=== PATIENT | female | born 1960 | race Caucasian/White ===

== ENCOUNTER 2022-04-12 05:30 | Inpatient (IN) | payer OTHER, SELFPAY ==
[2022-04-12] VITALS (27 sets, daily range): BP systolic 88–129; BP diastolic 47–89; PULSE 87–115; RESP 15–26; TEMP 37.1–37.6; O2SAT 91–99; BMI 48.4
--- NOTE | ~2022-04-12 | XR_ITS ---
EXAMINATION: XR tibia fibula LT 2V INDICATION: Left leg pain TECHNIQUE: Two views of the left leg are obtained. COMPARISON: None available FINDINGS: Bone alignment is normal. There is no fracture. There is mild osteoarthritis of the knee an d ankle. The soft tissues are unremarkable. IMPRESSION: 1. No acute osseous abnormality. Reviewed, dictated and finalized at location A.
--- NOTE | ~2022-04-12 | XR_ITS ---
EXAMINATION: XR hip LT 2V w AP pelvis INDICATION: Left hip pain after fall TECHNIQUE: AP pelvis and two views of the left hip are obtained COMPARISON: None available FINDINGS: There is advanced osteoarthritis of the left hip with remodeling of the femoral head and ac etabulum. No fracture is identified. There is mild osteoarthritis of the right hip. The soft tissues are unremarkable. IMPRESSION: 1. Advanced osteoarthritis of the left hip without acute osseous abnormality. Reviewed, dictated and finalized at location A.
--- NOTE | ~2022-04-12 | CT_ITS ---
EXAMINATION: CT abdomen pelvis w con INDICATION: Sepsis TECHNIQUE: Computed tomographic images of the abdomen and pelvis were obtained after the administrati on of 100 cc of Omnipaque 300 intravenous contrast. The dose-length product (DLP) was 1631.07 mGy-cm. Automated exposure control and iterative reconstruction technique were employed. COMPARISON: None available FINDINGS: Minimal dependent atelectasis is present in the lung bases. The heart size is normal. The g allbladder is surgically absent. The liver, spleen, pancreas, and adrenal glands are normal. There is moderate right hydronephrosis with an abrupt transition at the ureteropelvic junction. There is urot helial enhancement of the right renal pelvis. There is patchy perfusion of the right kidney. The left kidney is unremarkable. No pathologically enlarged abdominal or pelvic lymph nodes are identified. T here is mild lumbar spondylosis. There is advanced osteoarthritis of the left hip. IMPRESSION: 1. Moderate right hydronephrosis with abrupt transition at the ureteropelvic junction. Urothelial enh ancement in the right renal pelvis and patchy perfusion of the right kidney suggest superimposed urin malou tract infection/pyelonephritis. Reviewed, dictated and finalized at location A. IMPRESSION: 1. Moderate right hydronephrosis with abrupt transition at the ureteropelvic ju nction. Urothelial enhancement in the right renal pelvis and patchy perfusion o f the right kidney suggest superimposed urinary tract infection/pyelonephritis.
--- NOTE | ~2022-04-12 | CT_ITS ---
EXAMINATION: CT chest high resolution [facility] DATE: 04/14/2022 10:47 INDICATION: Possible lung nodules and chest radiograph TECHNIQUE: Computed tomography (CT) of the chest was performed without intravenous contrast. The dose -length product (DLP) was 611.90 mGy-cm. Automated exposure control and iterative reconstruction tech Redditque were employed. COMPARISON: None FINDINGS: No suspicious pulmonary nodules are identified to correlate with the chest radiographic fin ding in question. Chest radiographic findings are likely related to hypertrophy of the right first co stochondral junction. There is mild atelectasis in the lower lobes. There is a trace right pleural ef fusion. No pneumothorax is identified. A right internal jugular Port-A-Cath ends with its tip in the distal superior vena cava. The heart size is normal. There are no pathologically enlarged thoracic ly mph nodes. There is mild thoracic spondylosis. IMPRESSION: 1. Mild atelectasis. No suspicious pulmonary nodule. Reviewed, dictated and finalized at location A.
--- NOTE | ~2022-04-12 | XR_ITS ---
EXAMINATION: XR chest 1V portable INDICATION: Sepsis TECHNIQUE: Portable AP chest at 0523 hours COMPARISON: None available FINDINGS: A right internal jugular Port-A-Cath ends with its tip in the proximal superior vena cava. There is mild atelectasis of the lung bases. There are possible nodules of the right upper lobe. The heart size is normal. No pleural effusion or pneumothorax. IMPRESSION: 1. Mild atelectasis of the lung bases. 2. Possible nodules of the right upper lobe. Correlate with any prior chest imaging. If unavailable, nonemergent chest CT would be recommended. Reviewed, dictated and finalized at location A. IMPRESSION: 1. Mild atelectasis of the lung bases. 2. Possible nodules of the right upper lobe. Correlate with any prior chest sun ging. If unavailable, nonemergent chest CT would be recommended.
--- NOTE | 2022-04-12 05:25 | ED.FALL ---
HPI - Fall General Chief Complaint: Fall <Roxy Cadet MD - Last Filed: 04/12/22 07:46> Stated Complaint: weakness, glf, <Roxy Cadet MD - Last Filed: 04/12/22 07:46> History of Present Illness HPI Narrative: Patient is a 62-year-old female with a history of chronic kidney disease, recurrent urinary tract infections, presenting to the emergency department for evaluation of weakness. Patient reportedly has felt weak over the past 24 hours, and was taken to [facility] by EMS crew earlier yesterday evening, diagnosed with a urinary tract infection and kidney infection per EMS report. 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 Patient fell at home shortly after arriving back to her house, and was too weak to stand thus EMS was again called to the patient's residence. Patient was noted to be tachycardic, febrile, tachypneic and transported here for evaluation. At the time of assessment, patient reports only generalized weakness. She reports nausea and vomiting. She denies chest pain, cough, shortness of breath. She reports subjective fever and chills. She reports myalgias. She denies abdominal pain or flank pain. Patient does report history of nephrostomy tubes. Daughter at bedside provides this history. All patient's specialists are at [facility] per daughter report. <Roxy Cadet MD - Last Filed: 04/12/22 07:46> Related Data Home Medications: Home Medications Medication Instructions Recorded Confirmed atorvastatin 40 mg tablet 40 mg PO HS 04/12/22 04/12/22 lisinopril 40 mg tablet 40 tablet DAILY 04/12/22 04/12/22 metoprolol tartrate 25 mg tablet 25 mg DAILY 04/12/22 04/12/22 omega-3 fatty acids 2,000 mg PO DAILY 04/12/22 04/12/22 <Roxy Cadet MD - Last Filed: 04/12/22 07:46> Allergies/Adverse Reactions: Allergies Allergy/AdvReac Type Severity Reaction Status Date / Time No Known Allergies Allergy Verified 04/12/22 12:49 <Roxy Cadet MD - Last Filed: 04/12/22 07:46> [facility] Surgical History Surgical History: Surgical History (Updated 04/12/22 @ 07:42 by Roxy Cadet MD) H/O: hysterectomy History of colon resection History of urostomy <Roxy Cadet MD - Last Filed: 04/12/22 07:46> Social History Social History: Social History Smoking status: Never smoker Alcohol intake: never Substance use: never Spiritual care concerns: No <Roxy Cadet MD - Last Filed: 04/12/22 07:46> Course Reevaluation(s) Reevaluation #1: Patient care was signed out to me by Dr. Cadet. UTI was suspected having sciatica. Patient has been started on Rocephin. Urine is consistent with a urinary tract infection. Patient does have a leukocytosis of 21,000. CT is concerning for a urinary tract infection. Patient will be admitted to the hospitalist. <Abdoulaye Esposito MD - Last Filed: 04/12/22 16:13> Vital Signs Vital signs: Vital Signs Temperature 99.7 F H 04/12/22 05:29 Pulse Rate 115 H 04/12/22 05:29 Respiratory Rate 24 H 04/12/22 05:29 Blood Pressure 109/53 L 04/12/22 05:29 Pulse Oximetry 96 04/12/22 05:29 Oxygen Delivery Room Air 04/12/22 05:29 Temperature 98.7 F 04/12/22 14:00 Pulse Rate 96 04/12/22 14:00 Respiratory Rate 16 04/12/22 14:00 Blood Pressure 106/52 L 04/12/22 14:00 Pulse Oximetry 98 04/12/22 14:00 Oxygen Delivery Room Air 04/12/22 05:29 <Roxy Cadet MD - Last Filed: 04/12/22 07:46> Vital Signs Temperature 99.7 F H 04/12/22 05:29 Pulse Rate 115 H 04/12/22 05:29 Respiratory Rate 24 H 04/12/22 05:29 Blood Pressure 109/53 L 04/12/22 05:29 Pulse Oximetry 96 04/12/22 05:29 Oxygen Delivery Room Air 04/12/22 05:29 Temperature 98.7 F 04/12/22 14:00 Pulse Rate 96 04/12/22 14:00 Respiratory Rate 16 04/12/22 14:00 Blood Pressure 106/52 L 06
--- NOTE | 2022-04-12 05:44 | ECG_ITS ---
Measurements Intervals [place] Rate: 102 P: 65 VT: 131 QRS: -16 QRSD: 102 T: 37 QT: 365 QTc: 477 Interpretive Statements SINUS TACHYCARDIA OTHERWISE NORMAL ELECTROCARDIOGRAM ABNORMAL RHYTHM ECG NO PREVIOUS ECG AVAILABLE FOR COMPARISON Electronically Signed On 04-12-2022 7:57:55 CDT by Vaughn Cornell M.D.
[2022-04-12 06:14] LABS: Basophils Percent Auto 0.2 % (0.2-1.2); Hematocrit 38.4 % (37.0-47.0); Hemoglobin 12.5 g/dL (12.0-15.0); Immature Granulocyte Absolute 0.24 K/mm3 (0.00-0.031); Immature Granulocyte Percent A 1.1 % (0-0.5); Lymphocytes Absolute Auto 0.64 K/mm3 (0.9-3.2); Mean Corpuscular HGB Conc 32.6 g/dl (32-36); Mean Corpuscular Hemoglobin 31.7 pg (26-34); Mean Corpuscular Volume 97.5 fl (80-100); Mean Platelet Volume 9.4 fl (7.4-10.4); Monocytes Absolute Auto 1.3 K/mm3 (0.1-0.6); Monocytes Percent Auto 6.2 % (2.6-8.5); Neutrophils Absolute Auto 18.8 K/mm3 (1.3-6.7); Neutrophils Percent Auto 89.5 % (45.5-73.1); Platelet Count Result 261 k/mm3 (150-375); Red Blood Count 3.94 M/mm3 (4.2-5.4); Red Cell Distribution Width 15.5 % (11.5-14.5); White Blood Count 21.1 K/mm3 (4.5-10.0)
[2022-04-12] MEDS: SODIUM CHLORIDE 0.9% IV 1,000 ML 999 ML IV CONT ×2 (06:24)
[2022-04-12] MEDS: ONDANSETRON INJ 4 MG/2 ML VIAL IV PUSH (06:26)
[2022-04-12 06:32] LABS: Alanine Aminotransferase 21 U/L (6-35); Albumin Level 3.9 g/dL (3.5-5.1); Alkaline Phosphatase 107 U/L (38-126); Anion Gap 9 mmol/L (8-16); Aspartate Amino Transferase 80 U/L (14-36); Bilirubin,Total 0.6 mg/dL (0.2-1.3); Blood Urea Nitrogen 21 mg/dL (7-17); Calcium 9.4 mg/dL (8.4-10.2); Carbon Dioxide 23 mmol/L (22-30); Chloride 100 mmol/L (98-107); Estimated CRCL calculation 48 ml/min; Estimated Glomerular Filt Rate 33; Glucose 118 mg/dL (65-110); Lactic Acid Reflex 2.3 mmol/L (0.7-2.0); Potassium 3.7 mmol/L (3.4-5.0); Sodium 132 mmol/L (137-145)
[2022-04-12 06:42] LABS: Glucose Point of Care 107 mg/dl (65-105)
[2022-04-12 06:43] LABS: Troponin I 0.016 ng/mL (0.000-0.034)
--- NOTE | 2022-04-12 07:01 | PC.NURSE ---
Pt in CT at this time.
[2022-04-12 07:09] LABS: SARS-CoV-2 RNA PCR Negative
[2022-04-12 07:21] LABS: CRP 44.9 mg/dL (<1.0)
[2022-04-12 08:27] LABS: Bacteria Urine 2+ /hpf; Mucus Urine Few /lpf; RBC Urine 51-75 /hpf (0-2); WBC Urine >75 /hpf
[2022-04-12 08:31] LABS: Appearance Urine Turbid (Clear); Bilirubin Urine 1+ (Negative); Blood Urine 2+ (Negative); Color Urine Yellow (Yellow); Glucose Urine UA Negative (Negative); Ketones Urine 1+ mg/dL (Negative); Leukocyte Esterase Ur 3+ LEU/UL (Negative); Nitrate Urine Negative (Negative); Protein Urine 3+ mg/dL (Negative); Specific Grav Ur 1.025 (1.001-1.035); Urobilinogen Urine 0.2 mg/dL (<2.0)
[2022-04-12 08:32] LABS: Add Urine Microscopic? YES
[2022-04-12 09:11] LABS: Reflex Lactic Acid Yes or No Add Lactic
[2022-04-12 09:53] LABS: Lactic Acid 0.7 mmol/L (0.7-2.0)
--- NOTE | 2022-04-12 10:56 | PM.IMHP ---
H&P: HPI History of Present Illness Date/Time: 04/12/22 10:56 Chief Complaint: fall Narrative: 62F with a past medical history of recurrent urinary tract infections, hx of falls, colon cancer s/p resection 2019 who presented to the ED because of pain from a fall. Patient reports she had a fall while walking to the bathroom in the hotel where she lives. She does not remember whether she tripped on something but says she just suddenly fell. She denies LOC, lightheadedness, dizziness, chest pain. She went to the emergency department at [facility] and left after waiting for over five hours. Within 2 hours after leaving [facility] the patient says she had another fall. Patient denies fever, chills, cough, sore throat, shortness of breath, leg swelling, nausea, vomiting, abdominal pain, flank pain, dysuria, difficulty urinating. She reports she has difficulty getting around and does not leave her home frequently. She also says she may have been a little confused after the falls. Patient reports the fall was on her left side and says she has significant hip pain and left leg pain. In the ED, leukocytosis 21, creatinine 1.6, UA w/ turbid appearance, RBCs, WBCs, leukocyte esterase and bacteria. CT A/P w/ moderate right hydronephrosis with abrupt transition at the uteropelvic junction. Uroelial enhancement in the right renal pelvis & patchy perfusion suggest pyelonephritis. Review of Systems Constitutional: Constitutional: Reports weakness Cardiovascular: Cardiovascular: Denies chest pain, Denies leg edema and Denies lightheadedness Respiratory: Respiratory: Denies dyspnea Gastrointestinal: Gastrointestinal: Denies abdominal pain, Denies diarrhea, Denies nausea and Denies vomiting Genitourinary: Genitourinary: Denies dysuria and Denies flank pain Integumentary/Breasts: Skin/Breast: Denies rash PMFSH Past Medical History Medical History (Updated 04/12/22 @ 21:24 by Christina Eckert MD) Chronic kidney disease Colon cancer Hyperlipidemia Hypertension Surgical History Surgical History H/O: hysterectomy History of colon resection History of urostomy Social History Social History Smoking status: Never smoker Alcohol intake: never Substance use: never Spiritual care concerns: No Comments Mom had bone cancer. No other family history of cancer. Never smoked or drank. 2 children. and lives at [employer] [facility] in [place], where she and her work. Daughter Sara is her POA. Meds Home Medications and Allergies Home Medications Medication Instructions Recorded Confirmed Type aspirin 162 mg tablet,delayed 162 mg PO DAILY 04/12/22 04/12/22 History release atorvastatin 40 mg tablet 40 mg PO HS 04/12/22 04/12/22 History lisinopril 40 mg tablet 40 tablet DAILY 04/12/22 04/12/22 History metoprolol tartrate 25 mg tablet 25 mg DAILY 04/12/22 04/12/22 History omega-3 fatty acids 2,000 mg PO DAILY 04/12/22 04/12/22 History Allergies Allergy/AdvReac Type Severity Reaction Status Date / Time No Known Allergies Allergy Verified 04/12/22 12:49 Vital Signs Vital Signs - 24 hr 04/12/22 05:29 04/12/22 07:22 04/12/22 07:30 Temperature 99.7 F H Pulse Rate 115 H 104 H 101 H Respiratory Rate 24 H 22 H 18 Blood Pressure 109/53 L Pulse Oximetry 96 95 95 Oxygen Delivery Room Air 04/12/22 07:45 04/12/22 07:46 04/12/22 07:48 Temperature Pulse Rate 102 H 99 98 Respiratory Rate 22 H 24 H 26 H Blood Pressure 88/51 L 107/62 Pulse Oximetry Oxygen Delivery 04/12/22 07:49 04/12/22 08:00 04/12/22 08:01 Temperature Pulse Rate 98 93 93 Respiratory Rate 21 H 17 18 Blood Pressure 100/52 L Pulse Oximetry Oxygen Delivery 04/12/22 08:44 04/12/22 08:45 04/12/22 08:46 Temperature Pulse Rate 97 97 99 Respiratory Rate 17 20 20 Blood Pressure 102/89
--- NOTE | 2022-04-12 12:14 | ADMGEN ---
This patient, Marce Thomas, was admitted to Medical Room 345-. Patient/family oriented to hospital policies and general routines including ID bracelet, bed and alarms, visiting hours, pain management, procedures, bathroom and other care routines, personal items, smoking policy, room service/diet, and visiting hours. Information on how to activate the Rapid Response Team has been discussed. Patient/Family are encouraged to report perceived risks to care and to ask questions if they do not understand what they are told or what they should do.
[2022-04-12] MEDS: ACETAMINOPHEN 325 MG TABLET 650 MG PO ×2 (16:43→21:16)
[2022-04-12] MEDS: lisinopriL 20 MG TABLET 40 MG PO (16:46)
[2022-04-12] MEDS: METOPROLOL TARTRATE 25 MG TABLET PO (16:46)
[2022-04-12] MEDS: ATORVASTATIN 40 MG TABLET PO (20:28)
[2022-04-12] MEDS: ENOXAPARIN 40 MG/0.4 ML SYRINGE SUB-Q (21:56)
[2022-04-13] MEDS: ACETAMINOPHEN 325 MG TABLET 650 MG PO ×4 (02:21→20:26)
[2022-04-13 06:00] VITALS: BP 107/54; PULSE 104; RESP 18; TEMP 38.2; O2SAT 92
[2022-04-13 06:01] LABS: Basophils Percent Auto 0.2 % (0.2-1.2); Hematocrit 33.7 % (37.0-47.0); Hemoglobin 11.1 g/dL (12.0-15.0); Immature Granulocyte Absolute 0.09 K/mm3 (0.00-0.031); Immature Granulocyte Percent A 0.8 % (0-0.5); Lymphocytes Absolute Auto 0.65 K/mm3 (0.9-3.2); Lymphocytes Percent Auto 5.9 % (18.3-44.2); Mean Corpuscular HGB Conc 32.9 g/dl (32-36); Mean Corpuscular Hemoglobin 32.1 pg (26-34); Mean Corpuscular Volume 97.4 fl (80-100); Mean Platelet Volume 9.9 fl (7.4-10.4); Monocytes Absolute Auto 0.9 K/mm3 (0.1-0.6); Monocytes Percent Auto 8.5 % (2.6-8.5); Neutrophils Absolute Auto 9.4 K/mm3 (1.3-6.7); Neutrophils Percent Auto 84.6 % (45.5-73.1); Platelet Count Result 217 k/mm3 (150-375); Red Blood Count 3.46 M/mm3 (4.2-5.4); Red Cell Distribution Width 15.7 % (11.5-14.5); White Blood Count 11.1 K/mm3 (4.5-10.0)
[2022-04-13 06:52] VITALS: TEMP 38.2
[2022-04-13 06:53] LABS: Anion Gap 5 mmol/L (8-16); Blood Urea Nitrogen 16 mg/dL (7-17); Carbon Dioxide 23 mmol/L (22-30); Chloride 102 mmol/L (98-107); Estimated CRCL calculation 68 ml/min; Estimated Glomerular Filt Rate 56; Glucose 103 mg/dL (65-110); Potassium 3.1 mmol/L (3.4-5.0); Sodium 130 mmol/L (137-145)
--- NOTE | 2022-04-13 08:13 | PM.IMPN ---
Progress Note: A&P Assessment and Plan (1) Pyelonephritis: Code(s): N12 - Tubulo-interstitial nephritis, not specified as acute or chronic Status: Acute Plan Assessment and Plan Assessment and plan (1) Fall: ?Code(s): W19.XXXA - Unspecified fall, initial encounter ?Status:?Acute ?Assessment and Plan: Fall on the left side.? Patient continues to have significant pain to where it is extremely painful to roll to her left side.? XR left hip and XR left leg showed no acute fracture. -Pain control -PT/OT as needed (2) Sepsis: ?Code(s): A41.9 - Sepsis, unspecified organism ?Status:?Acute ?Assessment and Plan: CT A/P w/ right pyelonephritis, leukocytosis 21 and lactici acid 2.4-->0.7 after fluids.? Blood cultures were not on initial presentation, so ceftriaxone was given before blood cultures were drawn. CXR with possible lung nodule and no pneumonia. ? UCX pending.? -Continue ceftriaxone 1 g IV daily -[facility] record requested (3) Elevated serum creatinine: ?Code(s): R79.89 - Other specified abnormal findings of blood chemistry ?Status:?Acute ?Assessment and Plan: Documentation of CKD but no data to support this at this time.? Unsure if this acute or chronic.? -[facility] records requested (4) Abnormal finding on urinalysis: ?Code(s): R82.90 - Unspecified abnormal findings in urine ?Status:?Acute ?Assessment and Plan: No urinary sx but UA c/w infection.? Falls could have been cause by weakness from the infections.? UCX sent.? On ceftriaxone.? Will monitor.? (5) Lung abnormality: ?Code(s): J98.4 - Other disorders of lung ?Status:?Acute ?Assessment and Plan: CXR with possible right lung nodule.? Will need follow up CT chest outpatient. (6) Hypertension: ?Code(s): I10 - Essential (primary) hypertension ?Status:?Acute ?Assessment and Plan: Takes lisinopril 40 mg po daily at home.? Continue for now.? (7) Hyperlipidemia: ?Code(s): E78.5 - Hyperlipidemia, unspecified ?Status:?Acute ?Assessment and Plan: Takes atorvastatin.? Continue.? (8) Chronic kidney disease: ?Code(s): N18.9 - Chronic kidney disease, unspecified ?Status:?Acute ?Assessment and Plan: Unclear if this is true. U records requested.? Additional Plan Full Code Enoxaparin prophylaxis Daughter, Sara, is POA Subjective Date/time seen: 04/13/22 08:13 Patient reports feeling hot and sweaty when she had a fever this morning. Patient says she feels much better than yesterday. Still has left hip pain. Review of Systems Constitutional: Constitutional: Denies fatigue Musculoskeletal: Musculoskeletal: Reports arthralgias Exam Narrative: GENERAL: NAD, cooperative HEENT: Normocephalic, atraumatic, anicteric, nares clear, oropharynx moist and clear, poor dentition NECK: No thyromegaly, no lymphadenopathy CV: Normal S1, S2, RRR, No MRG RESP: CTAB, Normal work of breathing. Abdomen: Soft, non-tender, non-distended, +BS EXTREMITIES: Warm and well perfused, no clubbing, cyanosis. Edema to bilateral LE with varicose veins present. SKIN: warm, dry and intact. NEURO: CN 2 - 12 grossly intact. Exam limited by patient body habitus. Objective Data Vital Signs Vital Signs: Vital Signs - 24 hr 04/12/22 08:44 04/12/22 08:45 04/12/22 08:46 Temperature Pulse Rate 97 97 99 Respiratory Rate 17 20 20 Blood Pressure 102/89 Pulse Oximetry 95 95 95 Oxygen Delivery 04/12/22 08:47 04/12/22 09:00 04/12/22 09:01 Temperature Pulse Rate 97 96 96 Respiratory Rate 16 17 15 Blood Pressure 109/62 Pulse Oximetry 95 97 99 Oxygen Delivery 04/12/22 09:18 04/12/22 09:30 04/12/22 09:31 Temperature Pulse Rate 96 88 87 Respiratory Rate 16 22 H 16 Blood Pressure 101/55 L Pulse Oximetry 94 91 Oxygen Delivery 04/12/22 09:45 04/12/22 09:46 04/12/22 10:07 Temperature Pulse Rate 9
[2022-04-13] MEDS: ASPIRIN 81 MG ENTERIC TABLET 162 MG PO (08:25)
[2022-04-13] MEDS: METOPROLOL TARTRATE 25 MG TABLET PO (08:25)
[2022-04-13] MEDS: lisinopriL 20 MG TABLET 40 MG PO (08:25)
[2022-04-13] MEDS: POTASSIUM CHLORIDE 20 MEQ TABLET 40 MEQ PO (08:25)
[2022-04-13] MEDS: OMEGA 3 POLYUNSAT FATTY ACIDS 1 GM CAP 2 GM PO (08:25)
[2022-04-13] MEDS: POTASSIUM CHLORIDE INJ 40 MEQ in SODIUM CHLORIDE 0.9% IV 500 ML 130 MEQ IVPB (09:37)
--- NOTE | 2022-04-13 13:08 | PCCCNOTE ---
On 04/13/22, the student, [Lauren Fam], provided care and completed [facility] documentation on this patient. I have reviewed the student's documentation and agree with the findings.
[2022-04-13 15:30] VITALS: PULSE 84; RESP 16; TEMP 36.9; O2SAT 95
[2022-04-13 20:00] VITALS: PULSE 84; RESP 16; O2SAT 95
[2022-04-13] MEDS: ENOXAPARIN 40 MG/0.4 ML SYRINGE SUB-Q (20:26)
[2022-04-13] MEDS: ATORVASTATIN 40 MG TABLET PO (20:26)
[2022-04-13 21:15] VITALS: BP 97/55; PULSE 62; RESP 16; TEMP 36.5; O2SAT 97
[2022-04-14] MEDS: ACETAMINOPHEN 325 MG TABLET 650 MG PO ×3 (01:09→11:44)
[2022-04-14 05:06] VITALS: BP 112/70; PULSE 87; RESP 18; TEMP 36.5; O2SAT 95
[2022-04-14] MEDS: OMEGA 3 POLYUNSAT FATTY ACIDS 1 GM CAP 2 GM PO (08:14)
[2022-04-14] MEDS: ASPIRIN 81 MG ENTERIC TABLET 162 MG PO (08:14)
[2022-04-14] MEDS: lisinopriL 20 MG TABLET 40 MG PO (08:15)
[2022-04-14] MEDS: METOPROLOL TARTRATE 25 MG TABLET PO (08:15)
[2022-04-14 13:45] VITALS: BP 114/66; PULSE 81; RESP 16; TEMP 36.8; O2SAT 98
--- NOTE | 2022-04-14 16:05 | PM.DS ---
DS: Admitting Diagnosis Discharge Date April 14, 2022 Admitting Diagnosis Pyelonephritis DS: Discharge Diagnosis Discharge Diagnosis (1) Pyelonephritis: Code(s): N12 - Tubulo-interstitial nephritis, not specified as acute or chronic Status: Acute DS: Summary Hospital Course Hospital Course: 60-year-old female with past medical history significant for recurrent UTIs, history of falls over the last few weeks as well as colon cancer status post resection who presented to the ER after a fall. Patient states she fell while walking to the bathroom and the hotel where she lives. She thinks she might have tripped over something but is unsure. She denies any other symptoms. In the ER, she was found to have an abnormal urinalysis concerning for UTI CT abdomen pelvis showed hydronephrosis concerning for pyelonephritis. Patient was started on Rocephin with follow-up of urine cultures. Of note, chest x-ray showed a lung nodule that did not show up on repeat CT chest. Home medications were continued. Acute kidney injury resolved with IV fluids. PT OT evaluated patient and recommended rehab at discharge. Patient refused and was discharged home on oral antibiotics. Urine culture came back pansensitive E coli as well as Klebsiella pneumoniae, both sensitive to cefdinir. Time Spent with Patient Time attestation: Total time spent providing and/or coordinating discharge services: Exam Narrative: GENERAL: NAD, cooperative HEENT: Normocephalic, atraumatic, anicteric, nares clear, oropharynx moist and clear, poor dentition NECK: No thyromegaly, no lymphadenopathy CV: Normal S1, S2, RRR, No MRG RESP: CTAB, Normal work of breathing. Abdomen: Soft, non-tender, non-distended, +BS EXTREMITIES: Warm and well perfused, no clubbing, cyanosis. Edema to bilateral LE with varicose veins present. SKIN: warm, dry and intact. NEURO: CN 2 - 12 grossly intact. Exam limited by patient body habitus. DS: Data Data Completed and Pending Labs on day of discharge: Preliminary micro results at discharge 04/12/22 07:47 Urine Culture - Preliminary Urine Catheterized Escherichia Coli Gram negative bacilli isolated 04/12/22 12:42 Blood Culture - Preliminary Blood 04/12/22 11:18 Blood Culture - Preliminary Blood Discharge Plan Discharge Attending physician on discharge: Maritza Donnelly Consulting providers: Christina Eckert ; Thiago Camarena ; Vaughn Cornell Discharging Clinician: Maritza Donnelly Anticipated Discharge Date/Time: 04/14/22 13:38 Patient Disposition: Home, Self-Care Activity: as tolerated Diet: as tolerated Discharge Instructions: Please follow up with blood and urine culture final results with family doctor. Patient Instructions: Antibiotic Form Stand Alone Forms: General Discharge Information Follow-up/Referrals: Rita,Mady Root MD [Primary Care Provider] - Discharge Medications: New cefdinir 300 mg capsule 300 mg PO Q12H 7 Days Qty: 14 0RF Continued lisinopril 40 mg tablet 40 tablet DAILY omega-3 fatty acids Capsule 2,000 mg PO DAILY metoprolol tartrate 25 mg Tablet 25 mg DAILY atorvastatin 40 mg Tablet 40 mg PO HS aspirin 162 mg Tablet,Delayed Release (Dr/Ec) 162 mg PO DAILY Date of admission: 04/14/22 11:07 Primary Care Provider: RitaMady Admitting Provider: Maritza Donnelly Attending physician on admission: Maritza Donnelly Condition: Stable
== END 2022-04-14 16:02 | disposition home or self-care (01) | DRG 463 ==
LOC: ANHED 10:36 → ANH3MED 11:58
PROVIDERS: Family Medicine; Admitting Provider Student in an Organized Health Care Education/Training Program; Emergency Provider Emergency Medicine; PCP Family Medicine; Visit Provider Student in an Organized Health Care Education/Training Program
DX: N13.6 Pyonephrosis (principal); I12.9 Hypertensive chronic kidney disease with stage 1 through stage 4 chronic kidney disease, or unspecified chronic kidney disease; N18.9 Chronic kidney disease, unspecified; B96.20 Unspecified Escherichia coli [E. coli] as the cause of diseases classified elsewhere; B96.1 Klebsiella pneumoniae [K. pneumoniae] as the cause of diseases classified elsewhere; N17.9 Acute kidney failure, unspecified; E78.5 Hyperlipidemia, unspecified; Z20.822 Contact with and (suspected) exposure to COVID-19; W19.XXXA Unspecified fall, initial encounter; R91.1 Solitary pulmonary nodule; Z85.038 Personal history of other malignant neoplasm of large intestine; Z90.710 Acquired absence of both cervix and uterus
CPT/HCPCS: 36415; 51701; 71045; 71250; 73502; 73590; 74177; 80048; 80053; 81001; 82948; 83605; 84484; 85025; 86140; 87040; 87077; 87086; 87088; 87186; 87804; 93005; 96361; 96365; 96366; 96367; 96368; 96372; 96375; 97110; 97161; 97165; 97530; 99285; A9270; C9803; G0378; G0379; J0131; J0696; J1650; J2405; J3480; J7030; J7040; Q9967; U0003; U0005

== ENCOUNTER 2022-11-20 14:49 | Outpatient (CLI) | payer OTHER, SELFPAY ==
--- NOTE | ~2022-11-20 | XR_ITS ---
EXAMINATION: XR hip BI 2V w AP pelvis DATE: 11/20/2022 15:26 INDICATION: Left hip joint pain. TECHNIQUE: An anteroposterior view of the pelvis and 2 views of each hip were obtained. COMPARISON: Pelvis and hip radiograph 04/12/2022, CT abdomen and pelvis 04/12/2022 FINDINGS: There is lumbar levocurvature and mild spondylosis. No fracture. There is moderate right hi p osteoarthritis and severe left hip osteoarthritis. IMPRESSION: 1. Moderate right hip osteoarthritis and severe left hip osteoarthritis. Reviewed, dictated and finalized at location A. PAD INSPECTOR
== END 2022-11-20 14:50 | disposition home or self-care (01) ==
PROVIDERS: PCP Physician Assistant; Visit Provider Physician Assistant
DX: M16.0 Bilateral primary osteoarthritis of hip (principal)
CPT/HCPCS: 73521

== ENCOUNTER 2022-12-23 10:02 | Outpatient (CLI) | payer OTHER, SELFPAY ==
--- NOTE | ~2022-12-23 | MM_ITS ---
EXAMINATION: MM screening pam BI w tao HISTORY: Screening mammogram TECHNIQUE: Craniocaudal and mediolateral oblique 3-D tomosynthesis images were obtained and synthetic 2-D images were generated. CAD analysis was submitted and interpreted. COMPARISON: 01/11/2019 BREAST PARENCHYMAL COMPOSITION: There are scattered areas of fibroglandular density. FINDINGS: No suspicious mass, calcification, or architectural distortion are identified in either nga ast to suggest malignancy. There has been no suspicious interval change. IMPRESSION: 1. No mammographic evidence of malignancy. 2. Recommend routine screening mammography in one year. BI-RADS Category 1: Negative Reviewed, dictated and finalized at location A. TAL FORENSIC EXAMINER
== END 2022-12-23 10:03 | disposition home or self-care (01) ==
PROVIDERS: PCP Physician Assistant; Visit Provider Physician Assistant
DX: Z12.31 Encounter for screening mammogram for malignant neoplasm of breast (principal)
CPT/HCPCS: 77063; 77067

== ENCOUNTER 2023-02-27 11:16 | Observation (INO) | payer OTHER, SELFPAY ==
[2023-02-27] VITALS (27 sets, daily range): BP systolic 98–171; BP diastolic 68–148; PULSE 67–106; RESP 12–35; TEMP 36.4–37.2; O2SAT 93–100; BMI 56.7
--- NOTE | ~2023-02-27 | US_ITS ---
US renal BI 02/27/2023 23:18 Procedure: Realtime transabdominal ultrasound of the kidneys and bladder. Indication: Possible obstructive nephropathy Comparison: CT dated 02/27/2023 Findings: Renal echotexture is normal bilaterally without contour deforming mass or renal calculus. T here is severe right and mild left hydronephrosis. The right kidney measures 13.7 cm and left kidney measures 11.9 cm. Bladder within normal limits. The left ureteral jet is present. Right ureteral jet not visualized. Study technically limited due to patient body habitus. Impression: 1: Bilateral hydronephrosis, severe on the right and mild on the left. Reviewed, dictated and finalized at location A. Impression: 1: Bilateral hydronephrosis, severe on the right and mild on the left.
--- NOTE | ~2023-02-27 | CT_ITS ---
EXAMINATION: CT abdomen pelvis wo con DATE: 02/27/2023 14:05 INDICATION: TECHNIQUE: Computed tomography (CT) of the abdomen and pelvis was performed without intravenous contr ast. The dose-length product was 1614.69 mGy-cm. Automated exposure control and iterative reconstruct ion technique were employed. COMPARISON: CT dated 04/12/2022. FINDINGS: Lung bases are unremarkable. Heart size normal. No significant pleural or pericardial effus ion. Status post cholecystectomy. The liver, spleen, pancreas, adrenal glands and left kidney are unr emarkable. There is persistent moderate-severe dilation of the right renal pelvis with transition at the UPJ. There is mucosal enhancement of the right renal pelvis, suspicious for underlying infection. The spleen, pancreas, adrenal glands are unremarkable. There is a small subcentimeter hypodensity of the left kidney, too small to characterize. There is laxity of the lower anterior abdominal wall mus culature. There is small fat-containing umbilical hernia. Nonobstructive bowel pattern. No significan t vascular abnormality. No lymphadenopathy. There are cholecystectomy clips. Osteopenia. No acute oss eous abnormality. There is severe osteoarthritis of the left hip. IMPRESSION: 1. Moderate-severe dilation of the right renal pelvis with urothelial thickening, compatible with und erlying UPJ obstruction with possible superimposed infection. Reviewed, dictated and finalized at location B. IMPRESSION: 1. Moderate-severe dilation of the right renal pelvis with urothelial thickenin g, compatible with underlying UPJ obstruction with possible superimposed infect ion.
[2023-02-27 11:56] LABS: Basophils Percent Auto 0.4 % (0.2-1.2); Eosinophils Absolute Auto 0.1 K/mm3 (0-0.3); Hematocrit 40.6 % (37.0-47.0); Hemoglobin 13.1 g/dL (12.0-15.0); Immature Granulocyte Absolute 0.02 K/mm3 (0.00-0.031); Immature Granulocyte Percent A 0.3 % (0-0.5); Lymphocytes Absolute Auto 0.95 K/mm3 (0.9-3.2); Lymphocytes Percent Auto 13.5 % (18.3-44.2); Mean Corpuscular HGB Conc 32.3 g/dl (32-36); Mean Corpuscular Hemoglobin 33.1 pg (26-34); Mean Corpuscular Volume 102.5 fl (80-100); Mean Platelet Volume 9.6 fl (7.4-10.4); Monocytes Absolute Auto 0.5 K/mm3 (0.1-0.6); Monocytes Percent Auto 7.3 % (2.6-8.5); Neutrophils Absolute Auto 5.5 K/mm3 (1.3-6.7); Neutrophils Percent Auto 77.5 % (45.5-73.1); Platelet Count Result 284 k/mm3 (150-375); Red Blood Count 3.96 M/mm3 (4.2-5.4); Red Cell Distribution Width 12.5 % (11.5-14.5)
[2023-02-27 12:02] LABS: Alanine Aminotransferase 20 U/L (6-35); Albumin Level 4.6 g/dL (3.5-5.1); Alkaline Phosphatase 90 U/L (38-126); Anion Gap 12 mmol/L (8-16); Aspartate Amino Transferase 20 U/L (14-36); Bilirubin,Total 0.6 mg/dL (0.2-1.3); Blood Urea Nitrogen 18 mg/dL (7-17); Calcium 9.5 mg/dL (8.4-10.2); Carbon Dioxide 26 mmol/L (22-30); Chloride 104 mmol/L (98-107); Estimated CRCL calculation 80 ml/min; Estimated Glomerular Filt Rate > 60; Glucose 123 mg/dL (65-110); Sodium 142 mmol/L (137-145)
[2023-02-27 12:11] LABS: Prothrombin Time 13.7 Seconds (11.1-14.7)
[2023-02-27 12:12] LABS: Partial Thromboplastin Time 27.4 SECONDS (22.3-36.8)
--- NOTE | 2023-02-27 12:58 | ED.GENADULT ---
HPI - General Adult General Chief complaint: GI Bleed Stated complaint: rectal bleeding Time Seen by Provider: 02/27/23 12:28 History of Present Illness HPI narrative: 62-year-old female presented to the emergency department for evaluation of some blood when she is on a pad after using the bathroom. Patient states the blood was bright red but patient denies passing any blood with her stool denies any vaginal bleeding. Patient does live at home on her own. Related Data Home Medications Medication Instructions Recorded Confirmed atorvastatin 40 mg tablet 40 mg PO HS 04/12/22 02/27/23 lisinopril 40 mg tablet 40 tablet DAILY 04/12/22 02/27/23 metoprolol tartrate 25 mg tablet 25 mg DAILY 04/12/22 02/27/23 omega-3 fatty acids 2,000 mg PO DAILY 04/12/22 02/27/23 aspirin 81 mg tablet,delayed 162 mg PO DAILY 02/27/23 02/27/23 release (Adult Low Dose Aspirin) calcium citrate-vitamin D3 500 mg PO DAILY 02/27/23 02/27/23 cinnamon bark 500 mg capsule 4,000 mg PO DAILY 02/27/23 02/27/23 (Cinnamon) nystatin 100,000 unit/gram topical 1 applic topical BID PRN after 02/27/23 02/27/23 powder (Nyamyc) showering pumpkin seed xt and soybean germ 1 cap PO DAILY 02/27/23 02/27/23 300 mg-Cissus quad xt 150 mg capsule (Azo Bladder Control-Weight Management) Allergies Allergy/AdvReac Type Severity Reaction Status Date / Time No Known Allergies Allergy Verified 04/12/22 12:49 Review of Systems Review of Systems: All systems reviewed & are unremarkable except as noted in HPI and below PMFSH Past Medical History Medical History (Updated 02/27/23 @ 18:47 by Abdoulaye Esposito MD) Chronic kidney disease Colon cancer Hyperlipidemia Hypertension Surgical History Surgical History H/O: hysterectomy History of colon resection History of urostomy Family History Family History (Updated 02/27/23 @ 16:41 by Suzette Holley RN) Mother Diabetes mellitus Bone cancer Sibling Diabetes mellitus Social History Social History Smoking status: Never smoker Alcohol intake: never Substance use: never Lack of Transportation: No Lack of Food: Never True Current Housing: I Have Housing Concerned About Future Housing: No Difficulty Paying Gas/Electric Bills: No Difficulty Paying for Meds: No Currently Unemployed: No Education: High School Diploma/GED Difficulty w/ Childcare or Family Care: No Spiritual care concerns: No Exam Narrative: APPEARANCE: Well appearing, no pain, no distress, well-nourished. HEAD: normocephalic, atraumatic. EYES: PERRLA/EOMI, conjunctivae clear. NOSE: Normal no drainage NECK: Supple. No adenopathy, no masses. RESPIRATORY: Airway patent, respirations nonlabored. Clear to auscultation bilaterally, no rales, rhonchi, wheezing. CARDIOVASCULAR: Regular rate and rhythm without murmurs rubs or gallops. ABDOMINAL: Soft, nontender, nondistended, normal bowel sounds MUSCULOSKELETAL: Moves all extremities. Strength/ROM intact, No edema, No calf tenderness. NEURO: Alert. Cranial nerves II through XII intact. Grossly intact SKIN: Bruising on the buttock, no hemorrhoids, no fissures, no rectal bleeding. Hemoccult negative on direct exam. No active vaginal bleeding. Patient did have a pad in place and there is no active bleeding in the pad. Course Course Emergency Course: 60-year-old female presented emergency department for evaluation of bleeding. Patient was Hemoccult negative on the digital rectal exam. Patient had no vaginal bleeding on exam. Patient's afebrile with no leukocytosis and patient's hemoglobin is stable at 13.1. UA did show evidence of urinary tract infection and hematuria. CT was ordered to evaluate for possible stone due to the hematuria. CT scan did show evidence of UPJ junction. Case was discussed with hospitalist and patient was accepted for adm
[2023-02-27 13:37] LABS: Appearance Urine Cloudy (Clear); Bacteria Urine 4+ /hpf; Bilirubin Urine Negative (Negative); Blood Urine 2+ (Negative); Color Urine Yellow (Yellow); Glucose Urine UA Negative (Negative); Ketones Urine Negative (Negative); Leukocyte Esterase Ur 3+ LEU/UL (Negative); Nitrate Urine Positive (Negative); Non Pathogenic Casts 0-2; Protein Urine 2+ mg/dL (Negative); Specific Grav Ur 1.019 (1.001-1.035); Squamous Epithelial Cell Urine None seen /hpf (Few); Urobilinogen Urine 0.2 mg/dL (<2.0); WBC Urine >100 /hpf; pH Urine 5.5 (5.0-9.0)
[2023-02-27 13:39] LABS: Add Urine Microscopic? YES
--- NOTE | 2023-02-27 16:09 | WPDURCON ---
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 She is currently asymptomatic from UPJ obstruction. She has no signs of sepsis/SIRS. -UTI: Continue empiric antibiotics. Tailor antibiotic regimen based on urine culture results -micro hematuria: Few red blood cells and urinalysis at time of UTI. Recommend repeat urinalysis after completion of antibiotics, I expect that her hematuria will resolve with treatment of infection and no further workup necessary -right UPJ obstruction: Patient states this is unknown for a number of years. Consider Lasix renal scan as an outpatient to assess for obstruction/function of right kidney Urology Consult Note HPI Date Seen: 02/27/23 Requesting Physician: Meli Don MD Primary Care Provider: Kaye Mckeon, PA Consult Narrative Narrative: Marce Thomas is a 62 year old female who presented to the ER earlier today. She was found to have UTI. CT scan imaging revealed right hydronephrosis consistent with possible UPJ obstruction. Patient states she is asymptomatic denies fevers or chills, she denies dysuria or hematuria. Denies nausea vomiting. Patient states that she has known since her 30s that she has a ?abnormal kidney since childhood?. She has not had intervention for this in the past. [facility] Past Medical History Medical History (Updated 02/27/23 @ 14:42 by Abdoulaye Esposito MD) Chronic kidney disease Colon cancer Hyperlipidemia Hypertension Surgical History Surgical History H/O: hysterectomy History of colon resection History of urostomy Social History Social History Smoking status: Never smoker Alcohol intake: never Substance use: never Spiritual care concerns: No Meds Home Medications and Allergies Home Medications Medication Instructions Recorded Confirmed Type aspirin 162 mg tablet,delayed 162 mg PO DAILY 04/12/22 04/12/22 History release atorvastatin 40 mg tablet 40 mg PO HS 04/12/22 04/12/22 History lisinopril 40 mg tablet 40 tablet DAILY 04/12/22 04/12/22 History metoprolol tartrate 25 mg tablet 25 mg DAILY 04/12/22 04/12/22 History omega-3 fatty acids 2,000 mg PO DAILY 04/12/22 04/12/22 History cefdinir 300 mg capsule 300 mg PO Q12H 7 days #14 caps 04/14/22 Rx Allergies Allergy/AdvReac Type Severity Reaction Status Date / Time No Known Allergies Allergy Verified 04/12/22 12:49 Vital Signs Vital Signs - 24 hr 02/27/23 11:36 02/27/23 13:21 02/27/23 13:21 Temperature 36.8 C Pulse Rate 74 76 79 Respiratory Rate 14 Blood Pressure 140/72 141/69 H 164/80 H Pulse Oximetry 99 Oxygen Delivery Room Air 02/27/23 13:25 02/27/23 12:30 02/27/23 12:31 Temperature Pulse Rate 100 72 69 Respiratory Rate 14 16 Blood Pressure 140/121 H 148/121 H Pulse Oximetry 99 100 Oxygen Delivery 02/27/23 12:41 02/27/23 12:43 02/27/23 12:45 Temperature Pulse Rate 74 68 67 Respiratory Rate 19 14 13 Blood Pressure 171/148 H 151/77 H Pulse Oximetry 100 100 Oxygen Delivery 02/27/23 12:46 02/27/23 13:13 02/27/23 13:15 Temperature Pulse Rate 67 71 76 Respiratory Rate 14 15 16 Blood Pressure 151/92 H Pulse Oximetry 100 99 100 Oxygen Delivery 02/27/23 13:21 02/27/23 13:25 02/27/23 13:27 Temperature Pulse Rate 75 79 106 H Respiratory Rate 13 14 35 H Blood Pressure 141/69 H 164/80 H 140/121 H Pulse Oximetry 100 100 Oxygen Delivery
--- NOTE | 2023-02-27 16:32 | ADMGEN ---
This patient, Marce Thomas, was admitted to 2 Medical Room 243-. Patient/family oriented to hospital policies and general routines including ID bracelet, bed and alarms, visiting hours, pain management, procedures, bathroom and other care routines, personal items, smoking policy, room service/diet, and visiting hours. Information on how to activate the Rapid Response Team has been discussed. Patient/Family are encouraged to report perceived risks to care and to ask questions if they do not understand what they are told or what they should do.
--- NOTE | 2023-02-27 18:04 | PM.IMHP ---
H&P: HPI History of Present Illness Date/Time: 02/27/23 18:04 Chief Complaint: rectal bleed Narrative: this is a 62-year-old female patient who came to the emergency room to be evaluated for some possible GI bleed. The patient had blood on 1 of her pads after using the bathroom. She stated that the blood was bright red. She denies passing any blood in her stool or having any vaginal bleeding. The patient stated that she has been having chills but she always feels Cold. The patient was positive for UTI. Abdominal pelvis CT was read as a following Moderate-severe dilation of the right renal pelvis with urothelial thickening, compatible with underlying UPJ obstruction with possible superimposed infection. urology was consulted and has already seen the patient.The patient was started on Rocephin. The patient is being admitted to observation status on the date of service of 02/27/2023. Review of Systems Review of Systems: All systems reviewed & are unremarkable except as noted in HPI and below Constitutional: Constitutional: Reports as per HPI and Reports no additional constitutional complaints Eyes: Eyes: Reports as per HPI and Reports no additional eye complaints ENT: Reports system reviewed and no additional complaints, except as documented and Reports Normal hearing present Cardiovascular: Cardiovascular: Reports no additional cardiovascular complaints Respiratory: Respiratory: Reports no additional respiratory complaints and Reports no additional respiratory complaints Gastrointestinal: Gastrointestinal: Reports as per HPI and Reports no additional gastrointestinal complaints Musculoskeletal: Musculoskeletal: Reports no additional musculoskeletal complaints Integumentary/Breasts: Skin/Breast: Reports system reviewed and no additional complaints, except as docu and Reports as per HPI Neurologic: Reports system reviewed and no additional complaints, except as documented, Reports as per HPI and Reports Normal hearing present Psychiatric: Psychiatric: Reports no additional psychiatric complaints and Reports as per HPI Endocrine: Endocrine: Reports no additional endocrine complaints Hematologic/Lymphatic: Hematologic/Lymphatic: Reports no additional hematologic/lymphatic complaints Allergic/Immunologic: Allergic/Immunologic: Reports no additional allergic/immunologic complaints [facility] Past Medical History Medical History Chronic kidney disease Colon cancer Hyperlipidemia Hypertension Surgical History Surgical History (Updated 02/27/23 @ 22:15 by Laverne Garcia NP) H/O tubal ligation H/O: hysterectomy History of colon resection History of colonoscopy Family History Family History Mother Diabetes mellitus Bone cancer Sibling Diabetes mellitus Social History Social History (Updated 02/27/23 @ 22:14 by Laverne Garcia NP) Social History: she is and lives with her . She has 2 children. She is disabled. She denies any tobacco abuse. Code status full code Smoking status: Never smoker Alcohol intake: never Substance use: never Lack of Transportation: No Lack of Food: Never True Current Housing: I Have Housing Concerned About Future Housing: No Difficulty Paying Gas/Electric Bills: No Difficulty Paying for Meds: No Currently Unemployed: No Education: High School Diploma/GED Difficulty w/ Childcare or Family Care: No Spiritual care concerns: No Meds Home Medications and Allergies Home Medications Medication Instructions Recorded Confirmed Type atorvastatin 40 mg tablet 40 mg PO HS 04/12/22 02/27/23 History lisinopril 40 mg tablet 40 tablet DAILY 04/12/22 02/27/23 History metoprolol tartrate 25 mg tablet 25 mg DAILY 04/12/22 02/27/23 History omega-3 fatty acids 2,000 mg PO DAILY 04/12/22 02/27/23 History aspirin 81 mg tablet,[place]
[2023-02-27] MEDS: TOLNAFTATE 1% POWDER 45 GM BTL 1 APPLIC TOPICAL (23:23)
[2023-02-27] MEDS: ATORVASTATIN 40 MG TABLET PO (23:23)
[2023-02-28] VITALS (7 sets, daily range): BP systolic 126–142; BP diastolic 54–68; PULSE 75–96; RESP 14–22; TEMP 36.7–36.9; O2SAT 97–100
[2023-02-28 05:52] LABS: Basophils Percent Auto 0.3 % (0.2-1.2); Eosinophils Absolute Auto 0.1 K/mm3 (0-0.3); Eosinophils Percent Auto 1.4 % (0-4.4); Hematocrit 36.2 % (37.0-47.0); Hemoglobin 11.5 g/dL (12.0-15.0); Immature Granulocyte Absolute 0.03 K/mm3 (0.00-0.031); Immature Granulocyte Percent A 0.5 % (0-0.5); Lymphocytes Absolute Auto 1.25 K/mm3 (0.9-3.2); Lymphocytes Percent Auto 19.3 % (18.3-44.2); Mean Corpuscular HGB Conc 31.8 g/dl (32-36); Mean Corpuscular Hemoglobin 32.5 pg (26-34); Mean Corpuscular Volume 102.3 fl (80-100); Mean Platelet Volume 9.9 fl (7.4-10.4); Monocytes Absolute Auto 0.7 K/mm3 (0.1-0.6); Monocytes Percent Auto 10.8 % (2.6-8.5); Neutrophils Absolute Auto 4.4 K/mm3 (1.3-6.7); Neutrophils Percent Auto 67.7 % (45.5-73.1); Platelet Count Result 270 k/mm3 (150-375); Red Blood Count 3.54 M/mm3 (4.2-5.4); White Blood Count 6.5 K/mm3 (4.5-10.0)
[2023-02-28 06:01] LABS: Lactic Acid Reflex 0.9 mmol/L (0.7-2.0)
[2023-02-28] MEDS: ACETAMINOPHEN 325 MG TABLET 650 MG PO ×2 (06:02→18:46)
[2023-02-28 06:46] LABS: Thyroid Stimulating Hormone Reflex 0.834 uIU/mL (0.465-4.68)
--- NOTE | 2023-02-28 09:00 | PM.IMPN ---
Progress Note: A&P Assessment and Plan (1) UTI (urinary tract infection): Qualifiers: Hematuria presence: with hematuria Urinary tract infection type: acute cystitis Qualified Code(s): N30.01 - Acute cystitis with hematuria Code(s): N39.0 - Urinary tract infection, site not specified Status: Acute Assessment and Plan: UA appears to be infectious Urine culture pending Blood cultures pending Ceftriaxone started and continued Adjust therapy to culture results (2) Hematuria: Qualifiers: Hematuria type: other microscopic Qualified Code(s): R31.29 - Other microscopic hematuria Code(s): R31.9 - Hematuria, unspecified Status: Acute Assessment and Plan: Noted in the UA Antibiotics continued for UTI treatment cultures pending Continue current treatment (3) Obstruction of right ureteropelvic junction (UPJ): Code(s): N13.5 - Crossing vessel and stricture of ureter without hydronephrosis Status: Acute Assessment and Plan: UPJ stone noted on CT Hydronephrosis noted per ultrasound Urology consulted Trend urine output (4) Hyperlipidemia: Qualifiers: Hyperlipidemia type: mixed hyperlipidemia Qualified Code(s): E78.2 - Mixed hyperlipidemia Code(s): E78.5 - Hyperlipidemia, unspecified Status: Acute Assessment and Plan: Continue with atorvastatin Chronic and stable (5) Hypertension: Qualifiers: Hypertension type: primary hypertension Qualified Code(s): I10 - Essential (primary) hypertension Code(s): I10 - Essential (primary) hypertension Status: Acute Assessment and Plan: continue with lisinopril and metoprolol. blood pressure stable at 135/59 (6) BRBPR (bright red blood per rectum): Code(s): K62.5 - Hemorrhage of anus and rectum Status: Acute Assessment and Plan: Presented with complaints of bleeding that presented on her pad. No further bleeding noted H/H stable Continue to trend labs Adjust therapy as indicated. Time Spent With Patient Time: 48 minutes Time with patient: Greater than 35 minutes Subjective Date/time seen: 02/28/23899 Interval history: 02/28/23899 Patient is lying in bed. Patient stated that she would really like to get up to a chair. She does complain of some left knee and hip pain however she states that is pretty chronic. She also states that she has no chest pain, shortness a breath, nausea, vomiting, diarrhea or constipation. She denies any abdominal pain along with plain pain. She also keeps saying that every keeps asking about kidney stones but she does not know anything about her kidney stones. She also states that she takes 2 calcium pills every day which might be the reason why she has a getting stones. Ultrasound did show some significant hydronephrosis. 02/27/23? 18:04 ?this is a 62-year-old female patient who came to the emergency room to be evaluated for some possible GI bleed.? The patient had blood on 1 of her pads after using the bathroom.? She stated that the blood was bright red.? She denies passing any blood in her stool or having any vaginal bleeding.? The patient stated that she has been having chills but she always feels ? Cold.? The patient was positive for UTI.? Abdominal pelvis CT was read as a following?Moderate-severe dilation of the right renal pelvis with urothelial thickening, compatible with underlying UPJ obstruction with possible superimposed infection. urology was consulted and has already seen the patient.The patient was started on Rocephin.? The patient is being admitted to observation status on the date of service of 02/27/2023. Review of Systems Review of Systems: All systems reviewed & are unremarkable except as noted in HPI and below Exam Narrative: General: well-nourished
[2023-02-28] MEDS: OMEGA 3 POLYUNSAT FATTY ACIDS 1 GM CAP 2 GM PO (10:02)
[2023-02-28] MEDS: lisinopriL 20 MG TABLET 40 MG BY MOUTH (10:02)
[2023-02-28] MEDS: METOPROLOL TARTRATE 25 MG TABLET BY MOUTH (10:02)
[2023-02-28] MEDS: TOLNAFTATE 1% POWDER 45 GM BTL 1 APPLIC TOPICAL ×2 (10:03→20:55)
[2023-02-28] MEDS: ATORVASTATIN 40 MG TABLET PO (20:55)
[2023-03-01] MEDS: ACETAMINOPHEN 325 MG TABLET 650 MG PO ×2 (04:50→09:24)
[2023-03-01 05:01] VITALS: BP 143/71; PULSE 80; RESP 14; TEMP 36.7; O2SAT 97
[2023-03-01 06:16] LABS: Basophils Percent Auto 0.5 % (0.2-1.2); Eosinophils Absolute Auto 0.2 K/mm3 (0-0.3); Eosinophils Percent Auto 4.2 % (0-4.4); Hematocrit 36.2 % (37.0-47.0); Hemoglobin 11.8 g/dL (12.0-15.0); Immature Granulocyte Absolute 0.02 K/mm3 (0.00-0.031); Immature Granulocyte Percent A 0.4 % (0-0.5); Lymphocytes Absolute Auto 1.37 K/mm3 (0.9-3.2); Lymphocytes Percent Auto 24.9 % (18.3-44.2); Mean Corpuscular HGB Conc 32.6 g/dl (32-36); Mean Corpuscular Hemoglobin 33.4 pg (26-34); Mean Corpuscular Volume 102.5 fl (80-100); Mean Platelet Volume 9.7 fl (7.4-10.4); Monocytes Absolute Auto 0.7 K/mm3 (0.1-0.6); Neutrophils Absolute Auto 3.2 K/mm3 (1.3-6.7); Platelet Count Result 249 k/mm3 (150-375); Red Blood Count 3.53 M/mm3 (4.2-5.4); Red Cell Distribution Width 12.3 % (11.5-14.5); White Blood Count 5.5 K/mm3 (4.5-10.0)
[2023-03-01 06:30] LABS: Alanine Aminotransferase 15 U/L (6-35); Albumin Level 3.7 g/dL (3.5-5.1); Alkaline Phosphatase 72 U/L (38-126); Anion Gap 5 mmol/L (8-16); Aspartate Amino Transferase 19 U/L (14-36); Bilirubin,Total 0.7 mg/dL (0.2-1.3); Blood Urea Nitrogen 10 mg/dL (7-17); Calcium 8.6 mg/dL (8.4-10.2); Carbon Dioxide 28 mmol/L (22-30); Chloride 104 mmol/L (98-107); Estimated CRCL calculation 105 ml/min; Estimated Glomerular Filt Rate > 60; Glucose 104 mg/dL (65-110); Magnesium 2.1 mg/dL (1.6-2.3); Potassium 3.7 mmol/L (3.4-5.0); Sodium 137 mmol/L (137-145)
--- NOTE | 2023-03-01 08:05 | P.PNIM_ITS ---
Progress Note: A&P Assessment and Plan (1) UTI (urinary tract infection): Qualifiers: Hematuria presence: with hematuria Urinary tract infection type: acute cystitis Qualified Code(s): N30.01 - Acute cystitis with hematuria Code(s): N39.0 - Urinary tract infection, site not specified Status: Acute Assessment and Plan: * UA appears to be infectious * Urine culture Gram negative bacilli isolated * Blood cultures NGTD * Ceftriaxone continued day 2 * Adjust therapy to culture results (2) Hematuria: Qualifiers: Hematuria type: other microscopic Qualified Code(s): R31.29 - Other microscopic hematuria Code(s): R31.9 - Hematuria, unspecified Status: Acute Assessment and Plan: * Noted in the UA * Antibiotics continued for UTI treatment * cultures Blood NGTD, Urine gram negative bacilli isolated * Continue current treatment (3) Obstruction of right ureteropelvic junction (UPJ): Code(s): N13.5 - Crossing vessel and stricture of ureter without hydronephrosis Status: Acute Assessment and Plan: * UPJ stone noted on CT * Hydronephrosis noted per ultrasound * Urology consulted * Trend urine output (4) Hyperlipidemia: Qualifiers: Hyperlipidemia type: mixed hyperlipidemia Qualified Code(s): E78.2 - Mixed hyperlipidemia Code(s): E78.5 - Hyperlipidemia, unspecified Status: Acute Assessment and Plan: * Continue with atorvastatin * Chronic and stable (5) Hypertension: Qualifiers: Hypertension type: primary hypertension Qualified Code(s): I10 - Essential (primary) hypertension Code(s): I10 - Essential (primary) hypertension Status: Acute Assessment and Plan: * continue with lisinopril and metoprolol. * blood pressure stable at 143/71 * Continue to trend (6) BRBPR (bright red blood per rectum): Code(s): K62.5 - Hemorrhage of anus and rectum Status: Acute Assessment and Plan: * Presented with complaints of bleeding that presented on her pad. * No further bleeding noted * H/H stable, currently 11.8/36.2 * Continue to trend labs * Adjust therapy as indicated. Plan Spoke with Dr. Senior about the US and current concern. Plan is for the patient to get a renal scan outpatient. He stated that as long as the patient is getting better she would be ok to go when she is ready on antibiotics Time Spent With Patient Time: 48 minutes Time with patient: Greater than 35 minutes Subjective Date/time seen: 03/01/23 08:05 Interval history: 03/01/23 02/28/23 0900 Patient is lying in bed. Patient stated that she would really like to get up to a chair. She does complain of some left knee and hip pain however she states that is pretty chronic. She also states that she has no chest pain, shortness a breath, nausea, vomiting, diarrhea or constipation. She denies any abdominal pain along with plain pain. She also keeps saying that every keeps asking about kidney stones but she does not know anything about her kidney stones. She also states that she takes 2 calcium pills every day which might be the reason why she has a getting stones. Ultrasound did show some significant hydronephrosis. 02/27/23? 18:04 ?this is a 62-year-old female patient
--- NOTE | 2023-03-01 08:05 | PM.IMPN ---
Progress Note: A&P Assessment and Plan (1) UTI (urinary tract infection): Qualifiers: Hematuria presence: with hematuria Urinary tract infection type: acute cystitis Qualified Code(s): N30.01 - Acute cystitis with hematuria Code(s): N39.0 - Urinary tract infection, site not specified Status: Acute Assessment and Plan: UA appears to be infectious Urine culture Gram negative bacilli isolated Blood cultures NGTD Ceftriaxone continued day 2 Adjust therapy to culture results (2) Hematuria: Qualifiers: Hematuria type: other microscopic Qualified Code(s): R31.29 - Other microscopic hematuria Code(s): R31.9 - Hematuria, unspecified Status: Acute Assessment and Plan: Noted in the UA Antibiotics continued for UTI treatment cultures Blood NGTD, Urine gram negative bacilli isolated Continue current treatment (3) Obstruction of right ureteropelvic junction (UPJ): Code(s): N13.5 - Crossing vessel and stricture of ureter without hydronephrosis Status: Acute Assessment and Plan: UPJ stone noted on CT Hydronephrosis noted per ultrasound Urology consulted Trend urine output (4) Hyperlipidemia: Qualifiers: Hyperlipidemia type: mixed hyperlipidemia Qualified Code(s): E78.2 - Mixed hyperlipidemia Code(s): E78.5 - Hyperlipidemia, unspecified Status: Acute Assessment and Plan: Continue with atorvastatin Chronic and stable (5) Hypertension: Qualifiers: Hypertension type: primary hypertension Qualified Code(s): I10 - Essential (primary) hypertension Code(s): I10 - Essential (primary) hypertension Status: Acute Assessment and Plan: continue with lisinopril and metoprolol. blood pressure stable at 143/71 Continue to trend (6) BRBPR (bright red blood per rectum): Code(s): K62.5 - Hemorrhage of anus and rectum Status: Acute Assessment and Plan: Presented with complaints of bleeding that presented on her pad. No further bleeding noted H/H stable, currently 11.8/36.2 Continue to trend labs Adjust therapy as indicated. Plan Spoke with Dr. Senior about the US and current concern. Plan is for the patient to get a renal scan outpatient. He stated that as long as the patient is getting better she would be ok to go when she is ready on antibiotics Time Spent With Patient Time: 48 minutes Time with patient: Greater than 35 minutes Subjective Date/time seen: 03/01/23 08:05 Interval history: 03/01/23 02/28/23 0900 Patient is lying in bed. Patient stated that she would really like to get up to a chair. She does complain of some left knee and hip pain however she states that is pretty chronic. She also states that she has no chest pain, shortness a breath, nausea, vomiting, diarrhea or constipation. She denies any abdominal pain along with plain pain. She also keeps saying that every keeps asking about kidney stones but she does not know anything about her kidney stones. She also states that she takes 2 calcium pills every day which might be the reason why she has a getting stones. Ultrasound did show some significant hydronephrosis. 02/27/23? 18:04 ?this is a 62-year-old female patient who came to the emergency room to be evaluated for some possible GI bleed.? The patient had blood on 1 of her pads after using the bathroom.? She stated that the blood was bright red.? She denies passing any blood in her stool or having any vaginal bleeding.? The patient stated that she has been having chills but she always feels ? Cold.? The patient was positive for UTI.? Abdominal pelvis CT was read as a following?Moderate-severe dilation of the right renal pelvis with urothelial thickening, compatible with underlying UPJ obstruction with possible superimposed infection.
[2023-03-01 09:10] VITALS: BP 127/52; PULSE 84; RESP 18; O2SAT 97
[2023-03-01 09:13] VITALS: PULSE 80
[2023-03-01] MEDS: METOPROLOL TARTRATE 25 MG TABLET BY MOUTH (09:13)
[2023-03-01] MEDS: OMEGA 3 POLYUNSAT FATTY ACIDS 1 GM CAP 2 GM PO (09:13)
[2023-03-01] MEDS: lisinopriL 20 MG TABLET 40 MG BY MOUTH (09:13)
[2023-03-01] MEDS: TOLNAFTATE 1% POWDER 45 GM BTL 1 APPLIC TOPICAL (09:14)
--- NOTE | 2023-03-01 09:45 | P.DS_ITS ---
DS: Admitting Diagnosis Discharge Date 03/01/23 0945 Admitting Diagnosis Acute UTI DS: Discharge Diagnosis Discharge Diagnosis (1) UTI (urinary tract infection): Qualifiers: Hematuria presence: with hematuria Urinary tract infection type: acute cystitis Qualified Code(s): N30.01 - Acute cystitis with hematuria Code(s): N39.0 - Urinary tract infection, site not specified Status: Acute Assessment and Plan: * UA appears to be infectious * Urine culture Ecoli * Blood cultures NGTD * Ceftriaxone continued day 2 * Adjust therapy to culture results (2) Hematuria: Qualifiers: Hematuria type: other microscopic Qualified Code(s): R31.29 - Other microscopic hematuria Code(s): R31.9 - Hematuria, unspecified Status: Acute Assessment and Plan: * Noted in the UA * Antibiotics continued for UTI treatment * cultures Blood NGTD, Urine gram negative bacilli isolated * Continue current treatment (3) Obstruction of right ureteropelvic junction (UPJ): Code(s): N13.5 - Crossing vessel and stricture of ureter without hydronephrosis Status: Acute Assessment and Plan: * UPJ stone noted on CT * Hydronephrosis noted per ultrasound * Urology consulted * Trend urine output (4) Hyperlipidemia: Qualifiers: Hyperlipidemia type: mixed hyperlipidemia Qualified Code(s): E78.2 - Mixed hyperlipidemia Code(s): E78.5 - Hyperlipidemia, unspecified Status: Acute Assessment and Plan: * Continue with atorvastatin * Chronic and stable (5) Hypertension: Qualifiers: Hypertension type: primary hypertension Qualified Code(s): I10 - Essent ial (primary) hypertension Code(s): I10 - Essential (primary) hypertension Status: Acute Assessment and Plan: * continue with lisinopril and metoprolol. * blood pressure stable at 143/71 * Continue to trend (6) BRBPR (bright red blood per rectum): Code(s): K62.5 - Hemorrhage of anus and rectum Status: Acute Assessment and Plan: * Presented with complaints of bleeding that presented on her pad. * No further bleeding noted * H/H stable, currently 11.8/36.2 * Continue to trend labs * Adjust therapy as indicated. Plan Spoke with Dr. Senior about the US and current concern. Plan is for the patient to get a renal scan outpatient. He stated that as long as the patient is getting better she would be ok to go when she is ready on antibiotics DS: Summary Hospital Course Hospital Course: Patient is 60-year-old female with a past medical history of hypertension, hyperlipidemia, colon cancer, chronic kidney disease who presented the ED after finding some bright red blood on her pad. She stated that she did have colon cancer and this did make her a little anxious however upon arrival patient was noted to have an infectious looking UA. UTI did grow E coli and patient was placed on IV ceftriaxone which has been switched to cefdinir p.o. b.i.d.. Abdominal and pelvis CT showed a urinary stone in the UPJ with obstruction. Ultrasound was performed and showed hydronephrosis on the right and mild on the left. Urology has been consulted and wanted the infection treated 1st. Called Urology again today who stated that they would do a an outpatient renal scan to make sure she
--- NOTE | 2023-03-01 09:45 | PM.DS ---
DS: Admitting Diagnosis Discharge Date 03/01/23 0945 Admitting Diagnosis Acute UTI DS: Discharge Diagnosis Discharge Diagnosis (1) UTI (urinary tract infection): Qualifiers: Hematuria presence: with hematuria Urinary tract infection type: acute cystitis Qualified Code(s): N30.01 - Acute cystitis with hematuria Code(s): N39.0 - Urinary tract infection, site not specified Status: Acute Assessment and Plan: UA appears to be infectious Urine culture Ecoli Blood cultures NGTD Ceftriaxone continued day 2 Adjust therapy to culture results (2) Hematuria: Qualifiers: Hematuria type: other microscopic Qualified Code(s): R31.29 - Other microscopic hematuria Code(s): R31.9 - Hematuria, unspecified Status: Acute Assessment and Plan: Noted in the UA Antibiotics continued for UTI treatment cultures Blood NGTD, Urine gram negative bacilli isolated Continue current treatment (3) Obstruction of right ureteropelvic junction (UPJ): Code(s): N13.5 - Crossing vessel and stricture of ureter without hydronephrosis Status: Acute Assessment and Plan: UPJ stone noted on CT Hydronephrosis noted per ultrasound Urology consulted Trend urine output (4) Hyperlipidemia: Qualifiers: Hyperlipidemia type: mixed hyperlipidemia Qualified Code(s): E78.2 - Mixed hyperlipidemia Code(s): E78.5 - Hyperlipidemia, unspecified Status: Acute Assessment and Plan: Continue with atorvastatin Chronic and stable (5) Hypertension: Qualifiers: Hypertension type: primary hypertension Qualified Code(s): I10 - Essential (primary) hypertension Code(s): I10 - Essential (primary) hypertension Status: Acute Assessment and Plan: continue with lisinopril and metoprolol. blood pressure stable at 143/71 Continue to trend (6) BRBPR (bright red blood per rectum): Code(s): K62.5 - Hemorrhage of anus and rectum Status: Acute Assessment and Plan: Presented with complaints of bleeding that presented on her pad. No further bleeding noted H/H stable, currently 11.8/36.2 Continue to trend labs Adjust therapy as indicated. Plan Spoke with Dr. Senior about the US and current concern. Plan is for the patient to get a renal scan outpatient. He stated that as long as the patient is getting better she would be ok to go when she is ready on antibiotics DS: Summary Hospital Course Hospital Course: Patient is 60-year-old female with a past medical history of hypertension, hyperlipidemia, colon cancer, chronic kidney disease who presented the ED after finding some bright red blood on her pad. She stated that she did have colon cancer and this did make her a little anxious however upon arrival patient was noted to have an infectious looking UA. UTI did grow E coli and patient was placed on IV ceftriaxone which has been switched to cefdinir p.o. b.i.d.. Abdominal and pelvis CT showed a urinary stone in the UPJ with obstruction. Ultrasound was performed and showed hydronephrosis on the right and mild on the left. Urology has been consulted and wanted the infection treated 1st. Called Urology again today who stated that they would do a an outpatient renal scan to make sure she was really obstructed as the CT did indicate possible obstruction. Patient is feeling back to baseline she does have some left hip and knee pain which is chronic for her. She stated that she feels that she is back to baseline and did work with physical therapy and occupational therapy and was able to move around with her walker. Currently she denies any chest pain, shortness a breath, nausea, vomiting, diarrhea constipation. Patient is stable for discharge for labs and vital signs at this time. Time Spent with Patient Time attestation: T
== END 2023-03-01 14:15 | disposition home or self-care (01) ==
LOC: ANHED 13:51 → ANH2MED 16:47 → ANH3MEDSUR 03-03 10:00
PROVIDERS: Nurse Practitioner; Admitting Provider Family Medicine; Emergency Provider Emergency Medicine; PCP Physician Assistant; Visit Provider Student in an Organized Health Care Education/Training Program
DX: N30.01 Acute cystitis with hematuria (principal); B96.20 Unspecified Escherichia coli [E. coli] as the cause of diseases classified elsewhere; N13.2 Hydronephrosis with renal and ureteral calculous obstruction; I12.9 Hypertensive chronic kidney disease with stage 1 through stage 4 chronic kidney disease, or unspecified chronic kidney disease; N18.9 Chronic kidney disease, unspecified; E78.2 Mixed hyperlipidemia; K62.5 Hemorrhage of anus and rectum; Z79.82 Long term (current) use of aspirin; Z79.899 Other long term (current) drug therapy
CPT/HCPCS: 36415; 74176; 76775; 80053; 81001; 83605; 83735; 84443; 85025; 85610; 85730; 86850; 86900; 86901; 87040; 87077; 87086; 87186; 96365; 97161; 99285; A9270; G0378; G0379; J0696